=== PATIENT | male | born 1950 | race Caucasian/White ===

== ENCOUNTER → 2022-02-17 11:33 | Outpatient (CLI) | payer MEDICARE, OTHER, SELFPAY ==
--- NOTE | ~2022-02-17 | MR_ITS ---
EXAMINATION: MR shoulder RT wo con DATE: 02/17/2022 12:49 INDICATION: Right shoulder joint pain TECHNIQUE: Magnetic resonance imaging (MRI) of the right shoulder was performed without intravenous c ontrast. Sequences included axial PD-weighted FS FSE, coronal oblique PD-weighted FS FSE, coronal obl ique T2-weighted FS FSE, sagittal PD-weighted FS FSE, and sagittal T1-weighted SE. COMPARISON: None. FINDINGS: Evaluation is mildly limited by some motion artifact or blurring despite close suppression technique which is evident on multiple sequences including a couple repeated coronal sequences. Coracoacromial arch: The acromion undersurface is curved in morphology (type II). No anterior subacromial spur at the acro mial insertion of the normal coracoacromial ligament. 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 Rotator cuff: Moderate supraspinatus tendinopathy with significant attenuation of the distal 2-3 cm the supraspinat us tendon consistent with partial thickness tear. Due to the motion artifact remains indeterminate wh ether this involves the articular and subtle bursal surfaces of the tendon. Based upon the sagittal i mages which are less severely affected by the motion this appears to involve greater than one half of the tendon thickness. No homogeneous fluid signal intensity full-thickness tear defect appreciated. Mild tendinopathy without discrete tear at the distal infraspinatus tendon. The teres minor tendon is normal. Mild subscapularis tendinopathy without tear. No asymmetric rotator cuff muscle atrophy. Biceps tendon, glenoid labrum and glenohumeral cartilage: Long head of the biceps tendon is normal. Glenoid labrum is normal with normal anterosuperior subling ual foramen. Glenohumeral cartilage appears relatively preserved with no discrete regions of chondrom alacia although assessment is limited by motion. Fluid: Physiologic amount of fluid in the glenohumeral joint and biceps tendon sheath. No loose osteochondr al bodies. Synovitis and small amount of fluid throughout the subacromial/subdeltoid bursa consistent with moderate bursitis. Bones: Normal marrow signal with fracture or abnormal marrow replacing process. IMPRESSION: 1. Evaluation moderately limited by motion artifact or blurring on multiple sequences most significan t on the coronal sequences despite both motion suppression techniques and some repeated imaging. 2. Moderate supraspinatus tendinopathy with at least moderate severity partial thickness tear with an d increased signal and significant attenuation of the distal 2-3 cm of the tendon. Unclear whether th is involves the articular, bursal or both surfaces of the tendon. 3. Mild infraspinatus and subscapularis tendinopathy without discrete tear. 4. Moderate subacromial/subdeltoid bursitis. Reviewed, dictated and finalized at location A. IMPRESSION: 1. Evaluation moderately limited by motion artifact or blurring on multiple seq uences most significant on the coronal sequences despite both motion suppressio n techniques and some repeated imaging. 2. Moderate supraspinatus tendinopathy with at least moderate severity partial thickness tear with and increased signal and significant attenuation of the dis jean 2-3 cm of the tendon. Unclear whether this involves the articular, bursal o r both surfaces of the tendon. 3. Mild infraspinatus and subscapularis tendinopathy without discrete tear. 4. Moderate subacromial/subdeltoid bursitis.
== END ==
PROVIDERS: PCP Family Medicine; Visit Provider Orthopaedic Surgery
DX: M25.511 Pain in right shoulder (principal); M75.81 Other shoulder lesions, right shoulder; M75.51 Bursitis of right shoulder
CPT/HCPCS: 73221